=== PATIENT | female | born 1975 | race African-American/Black ===

== ENCOUNTER 2024-01-12 13:15 | Emergency (ER) | payer MEDICAID ==
[~2024-01-12] VITALS: Ht 172.7 cm; Wt 100.0 kg
[~2024-01-12 13:15] MED LIST: AMLO2.5T2 PO; LISI2.5T47 PO; METH250T3 PO; [UNRECOGNIZED DRUG - REMARK]
[2024-01-12 13:54] VITALS: BP 132/90; PULSE 69; RESP 18; TEMP 97.9; O2SAT 100
== END 2024-01-12 17:02 | disposition left against medical advice (07) ==
LOC: ER 14:46
DX: M54.9 Dorsalgia, unspecified (principal); Z53.21 Procedure and treatment not carried out due to patient leaving prior to being seen by health care provider
CPT/HCPCS: Z7610 ×2

== ENCOUNTER 2024-11-10 18:51 | Emergency (ER) | payer MEDICAID ==
[~2024-11-10] VITALS: Ht 162.6 cm; Wt 104.0 kg
[2024-11-10 18:59] VITALS: O2SAT 98
[2024-11-10 19:43] LABS: BASOPHILS % 0.3 % (0.0-2.0); HEMATOCRIT. 24.6 % (36.0-48.0); HEMOGLOBIN. 7.2 g/dL (12.0-16.0); LYMPHOCYTES % 24.1 % (20.0-50.0); MEAN CORPUSCULAR HEMOGLOBIN 18.8 pg (28.0-32.0); MEAN CORPUSCULAR HGB CONC 29.4 g/dL (31.0-37.0); MEAN CORPUSCULAR VOLUME 63.7 fL (81.0-99.0); MEAN PLATELET VOLUME 8.1 fl (7.4-10.4); MONOCYTES % 4.7 % (2.0-8.0); NEUTROPHILS % 68.9 % (40.0-76.0); PLATELET 617 x1000/uL (130-400); RED BLOOD CELL COUNT 3.87 mill/uL (4.2-5.4)
[2024-11-10 19:50] LABS: ADD RBC MORPHOLOGY YES; DIFFERENTIAL COMMENT 1
[2024-11-10 19:53] LABS: CHLORIDE 104 mEq/L (98-107); POTASSIUM 3.3 mEq/L (3.5-5.1); SODIUM 140 mEq/L (136-145)
[2024-11-10 19:54] LABS: CARBON DIOXIDE 30 mEq/L (21-32)
[2024-11-10 19:55] LABS: CALCIUM 8.8 mg/dL (8.7-10.4)
[2024-11-10 19:59] LABS: CREATININE 0.9 mg/dL (0.6-1.0); GLUCOSE 163 mg/dL (70-105); UREA NITROGEN BLOOD 12 mg/dL (9-23)
[2024-11-10 20:06] LABS: TROPONIN I HIGH SENSITIVITY < 4 ng/L (3.0-34)
[2024-11-10 20:15] LABS: HYPOCHROMASIA 3+; MICROCYTOSIS 3+; PLATELET ESTIMATE INCREASED
[2024-11-10 20:16] LABS: ANISOCYTOSIS 1+
[2024-11-10] MEDS: DEXAMETHASONE 10 MG/ML VIAL PO ONE (20:54)
[2024-11-10 22:25] LABS: HCG SCREEN NEGATIVE
[2024-11-10] MEDS ORDERED: IBUP-2029 MT (22:27)
[2024-11-10 22:30] VITALS: BP 154/70; PULSE 76; RESP 14; TEMP 36.9; O2SAT 100
== END 2024-11-10 22:33 | disposition home or self-care (01) ==
LOC: ER 18:51
DX: R07.89 Other chest pain (principal); J02.9 Acute pharyngitis, unspecified; E11.9 Type 2 diabetes mellitus without complications; I10 Essential (primary) hypertension; Z79.899 Other long term (current) drug therapy
CPT/HCPCS: 99285; 71045; 80048; 84703; 85025; 84484; 36415; 93005; J1100

== ENCOUNTER 2024-11-14 16:31 | Emergency (ER) | payer MEDICAID ==
[~2024-11-14] VITALS: Ht 162.6 cm; Wt 107.9 kg
[~2024-11-14 16:31] MED LIST changes: +IBUP-2029 MT
[2024-11-14 16:34] VITALS: O2SAT 97
[2024-11-14 16:40] VITALS: BP 152/79; PULSE 81; RESP 16; TEMP 36.8; O2SAT 98
[2024-11-14 18:47] LABS: BASOPHILS % 0.5 % (0.0-2.0); EOSINOPHILS % 1.7 % (0.0-5.0); HEMATOCRIT. 29.2 % (36.0-48.0); HEMOGLOBIN. 8.2 g/dL (12.0-16.0); LYMPHOCYTES % 29.8 % (20.0-50.0); MEAN CORPUSCULAR HEMOGLOBIN 18.8 pg (28.0-32.0); MEAN CORPUSCULAR HGB CONC 28.1 g/dL (31.0-37.0); MEAN CORPUSCULAR VOLUME 67.1 fL (81.0-99.0); MEAN PLATELET VOLUME 8.4 fl (7.4-10.4); MONOCYTES % 4.8 % (2.0-8.0); NEUTROPHILS % 63.2 % (40.0-76.0); PLATELET 692 x1000/uL (130-400); RED BLOOD CELL COUNT 4.36 mill/uL (4.2-5.4); RED CELL DISTRIBUTION WIDTH 17.2 % (11.6-14.6); WHITE BLOOD COUNT 10.8 x1000/uL (4.5-11.0)
[2024-11-14 18:54] LABS: CARBON DIOXIDE 22 mEq/L (21-32); CHLORIDE 103 mEq/L (98-107); POTASSIUM 3.3 mEq/L (3.5-5.1); SODIUM 136 mEq/L (136-145)
[2024-11-14 18:55] LABS: ADD RBC MORPHOLOGY YES; CALCIUM 9.3 mg/dL (8.7-10.4); DIFFERENTIAL COMMENT 1
[2024-11-14 19:00] LABS: CREATININE 0.8 mg/dL (0.6-1.0); GLUCOSE 151 mg/dL (70-105); UREA NITROGEN BLOOD 11 mg/dL (9-23)
[2024-11-14 19:09] LABS: ANISOCYTOSIS 1+; HYPOCHROMASIA 3+; MICROCYTOSIS 3+; OVALOCYTES 1+; PLATELET ESTIMATE MARKEDLY INCREASED
[2024-11-14] MEDS ORDERED: DIPH25CA83 MT (19:44)
== END 2024-11-15 00:16 | disposition home or self-care (01) ==
LOC: ER 16:31
DX: M79.89 Other specified soft tissue disorders (principal); E11.9 Type 2 diabetes mellitus without complications; I10 Essential (primary) hypertension; E78.5 Hyperlipidemia, unspecified; Z79.899 Other long term (current) drug therapy
CPT/HCPCS: 36415; 73130; 80048; 85025; 93971; 99284